=== PATIENT | male | born 2000 | race Hispanic/Latino ===

== ENCOUNTER 2023-08-04 11:30 | Emergency (ER) | payer OTHER ==
[~2023-08-04] VITALS: Ht 175.3 cm; Wt 68.0 kg
[2023-08-04 11:41] VITALS: BP 125/75; PULSE 79; RESP 16
[2023-08-04] MEDS ORDERED: CYCL10TA16 PO (13:45)
[2023-08-04] MEDS ORDERED: IBUP-2070 PO (13:45)
[2023-08-04] MEDS ORDERED: IBUPROFEN 600 MG TABLET PO ONE (14:00)
[2023-08-04] MEDS ORDERED: CYCLOBENZAPRINE HCL 10 MG TABLET PO ONE (14:00)
== END 2023-08-04 14:04 | disposition home or self-care (01) ==
LOC: EDH 11:30
DX: S46.812A Strain of other muscles, fascia and tendons at shoulder and upper arm level, left arm, initial encounter (principal); Z79.899 Other long term (current) drug therapy; W18.39XA Other fall on same level, initial encounter; Y93.89 Activity, other specified; Y92.89 Other specified places as the place of occurrence of the external cause; Y99.8 Other external cause status
CPT/HCPCS: 73030